=== PATIENT | female | born 1930 | race Caucasian/White ===

== ENCOUNTER 2016-11-15 03:26 | Emergency (ER) | payer MEDICARE, OTHER ==
--- NOTE | 2016-11-15 04:03 | ED Physician Documentation ---
General Adult - HISTORIAN Historian: patient, child (son) - HPI Stated Complaint: Pain/muscle spasms to Lt hip/buttocks Chief Complaint: General Adult Additional Information: L anterior "hip" pain for a long time, This week she has left glut pain, a lot worse this am. Does not radiate. Hasn't tken any meds for this. She couldn't lift left leg enough to get into bed. Family put mattress on the floor. Pain is worse if she lies supine. Better if she sits or stands. - ROS CONST: no problems MS/SKIN/LYMPH: denies: back pain NEURO/PSYCH: difficulty walking. denies: tingling, numbness - PAST HX Past History: none Surgeries/Procedures: , other (hysterectomy) Allergies/Adverse Reactions: Allergies Allergy/AdvReac Type Severity Reaction Status Date / Time No Known Drug Allergies Allergy Verified 11/15/16 03:44 Home Medications: Ambulatory Orders Medication Instructions Recorded [place] Carbonate 150 mg PO DAILY av 01/08/14 Diphenoxylate HCl/Atropine 1 tab PO QID PRN 11/15/16 [Diphenoxylate-Atrop 2.5-0.025] Levothyroxine Sodium [Unithroid] 75 mcg PO D 11/15/16 Mirtazapine [Mirtazapine] 15 mg PO D 11/15/16 - SOCIAL HX Smoking History: non-smoker - FAMILY HX Family History: Yes (F with colon cancer) - VITAL SIGNS Vital Signs: Vital Signs Temp Pulse Resp BP Pulse Ox 97.6 F 70 18 161/71 98 11/15/16 03:30 11/15/16 03:30 11/15/16 03:30 11/15/16 03:30 11/15/16 03:30 - REVIEWED ASSESSMENTS Nursing Assessment Reviewed: Yes Vitals Reviewed: Yes Progress - Progress Progress: Computed tomography of the pelvis without contrast History: Left posterior pelvic pain Findings: Transverse pelvis sections are obtained without contrast. Hysterectomy , advanced multilevel lumbar spondylosis and rotary scoliosis, and a small amount of free pelvic fluid are observed. 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 A few bone islands are present in the right iliac wing. Osteitis pubis and bilateral acetabular roof degenerative subchondral cysts are noted. There is no evidence of fracture in the pelvis or proximal femora. There is no evidence of soft tissue hematoma. Mild enlargement of the left iliopsoas muscle is associated with adjacent soft tissue stranding. The tendon appears intact distally. Impression: 1. Mild left iliopsoas enlargement with adjacent soft tissue stranding, possibly representing mild intramuscular hemorrhage or strain. 2. Advanced lumbar spondylosis, S2 Tarlov cysts, osteitis pubis, bilateral acetabular roof subchondral cysts, and small amount of nonspecific free pelvic fluid. DLP [id number] Electronically signed on Nov 15, 2016 4:52:08 AM BUTTON SEWING MACHINE OPERATOR by: Tank Rubalcava ED Results Lab/Radiology - Orders Orders: ED Orders Category Date Time Status HIP CT W/O [CT PELVIS W/O CONTRAST] Stat Exams 11/15/16 Ordered General Adult Physical Exam - PHYSICAL EXAM GENERAL APPEARANCE: moderate distress (restless, wit hfrequent position changes) EENT: eye inspection normal, ENT inspection normal NECK: normal inspection, supple RESPIRATORY: no resp distress, breath sounds normal CVS: reg rate & rhythm, heart sounds normal ABDOMEN: soft, normal bowel sounds, no distension, non-tender RECTAL: deferred BACK: normal inspection, no CVA tenderness, other (no midline tenderness) SKIN: warm/dry, normal color EXTREMITIES: normal range of motion (no change in pain with hip rotation. ) NEURO: CN's nml as tested, motor nml, sensation nml Discharge Clincal Impression: Strain of left iliopsoas muscle Qualifiers: Encounter type: initial encounter Qualified Code(s): S76.912A - Strain of unspecified muscles, fascia and tendons at thigh level, left thigh, initial encounter Additional Instructions: Try 400 mg of ibuprofen with food in your stomach, 3 to four times a day See your provider if you are not better in 3-5 days. Home Medications: Ambulatory Orders [place] Carbonate 150 mg PO DAILY av 01/08/14 Diphenoxylate HCl/Atropine [Diphenoxylate-Atrop 2.5-0.025] 1 tab PO QID PRN Levothyroxine Sodium [Unithroid] 75 mcg PO D 11/15/16 Mirtazapine [Mirtazapine] 15 mg PO D 11/15/16 Condition: Fair Disposition: 01 HOME, SELF-CARE Decision to Admit: NO Decision Time: 04:57
[2016-11-15] MEDS ORDERED: HYDROcodone /APAP 5/325 1 EACH TABLET PO ONE (04:59)
[2016-11-15 06:10] VITALS: BP 142/72
--- NOTE | 2016-11-15 07:42 | Diagnostic Imaging Report ---
DUNG CARDOZA [facility] [address] [address] [facility] [address] [place], [place]. [address] Report Submission Date: Nov 15, 2016 4:52:08 AM CLIPPER MACHINE Patient Study Name: LEYLA MARIO Date: Nov 15, 2016 4:23:52 AM CLIPPER MACHINE Modality Type: CT\SR Gender: F Description: CT PELVIS W/O CONTRAST : [birth year] Institution: [facility] Physician: DUNG CARDOZA Computed tomography of the pelvis without contrast History: Left posterior pelvic pain Findings: Transverse pelvis sections are obtained without contrast. Hysterectomy , advanced multilevel lumbar spondylosis and rotary scoliosis, and a small amount of free pelvic fluid are observed. 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 A few bone islands are present in the right iliac wing. Osteitis pubis and bilateral acetabular roof degenerative subchondral cysts are noted. There is no evidence of fracture in the pelvis or proximal femora. There is no evidence of soft tissue hematoma. Mild enlargement of the left iliopsoas muscle is associated with adjacent soft tissue stranding. The tendon appears intact distally. Impression: 1. Mild left iliopsoas enlargement with adjacent soft tissue stranding, possibly representing mild intramuscular hemorrhage or strain. 2. Advanced lumbar spondylosis, S2 Tarlov cysts, osteitis pubis, bilateral acetabular roof subchondral cysts, and small amount of nonspecific free pelvic fluid. DLSusannah [id number] Electronically signed on Nov 15, 2016 4:52:08 AM CLIPPER MACHINE by: Tank URIBE
== END 2016-11-15 05:05 | disposition home or self-care (01) ==
LOC: ED 03:26
DX: S76.912A Strain of unspecified muscles, fascia and tendons at thigh level, left thigh, initial encounter (principal); X58.XXXA Exposure to other specified factors, initial encounter; Y93.9 Activity, unspecified; Y99.9 Unspecified external cause status
CPT/HCPCS: 72192; A9270; 99283

== ENCOUNTER 2017-04-10 10:09 | Outpatient (CLI) | payer MEDICARE, OTHER | END 2017-04-10 10:10 | LOC: POD 10:09 | PROVIDERS: ATTEND Podiatrist Public Medicine | DX: L84 Corns and callosities (principal); B35.1 Tinea unguium; L60.0 Ingrowing nail; M79.675 Pain in left toe(s); M79.674 Pain in right toe(s) ==

== ENCOUNTER 2017-05-07 11:27 | Outpatient (CLI) | payer MEDICARE, OTHER ==
[2017-05-07 11:52] LABS: BASOPHILS % 0.8 (0.0-1.5); EOSINOPHILS % 1.5 % (0.0-6.8); MEAN CORPUSCULAR HEMOGLOBIN 29.8 pg (28.0-34.0); MEAN CORPUSCULAR VOLUME 92.9 fl (80.0-100.0); NEUTROPHILS # 3.9 # k/uL (1.4-7.7)
[2017-05-07 11:58] LABS: APPEARANCE,URINE Clear (CLEAR); COLOR,URINE Yellow (YELLOW); OCCULT BLOOD,URINE Negative (NEGATIVE); UROBILINOGEN URINE 0.2 Eu (0.2-1.0)
[2017-05-07 12:31] LABS: eGFR (African) > 60; eGFR (Non-African) > 60
--- NOTE | 2017-05-07 15:22 | Diagnostic Imaging Report ---
[facility] [address] [facility] [place], [place]. [address] Report Submission Date: May 07, 2017 1:35:42 PM CDT Patient Study Name: LEYLA MARIO Date: May 07, 2017 11:44:54 AM CDT Modality Type: CT\SR Gender: F Description: CT BRAIN W/O CONTRAST : [birth year] Institution: [facility] Physician ESTELLA GRACIA - YENIFER CT brain noncontrast Date of study: May 07, 2017. CLINICAL HISTORY: WEAKNESS, MEMORY DISTURBANCE, BALANCE PROBLEMS (Hx) / WEAKNESS, MEMORY DISTURBANCE (DICOM Hx) TECHNIQUE: 5 mm contiguous axial images of the brain, noncontrast. FINDINGS: No comparison studies are provided. There is diffuse cortical and central atrophy with chronic periventricular microvascular ischemic changes. There is no evidence of intracranial mass effect, hemorrhage, or acute hydrocephalus. The lateral ventricles are symmetrical and the 4th ventricle is midline without shift. No acute brain parenchymal changes or extra-axial fluid collections are identified. The posterior fossa contents are within normal limits. The calvarium is intact. The left maxillary sinus mucous retention cyst or polyp is noted. The remaining visualized sinuses and mastoid air cells are clear. IMPRESSION: No acute intracranial process. Atrophy and chronic periventricular microvascular ischemic changes. Electronically signed on May 07, 2017 1:35:42 PM CDT by: Renee URIBE
--- NOTE | 2017-05-07 15:23 | Diagnostic Imaging Report ---
[facility] [address] [address] Report Submission Date: May 07, 2017 1:40:33 PM CDT Patient Study Name: LEYLA MARIO Date: May 07, 2017 11:48:11 AM CDT Modality Type: CR Gender: F Description: CHEST : [birth year] Institution: [facility] Physician ESTELLA GARCIA - OP Chest 2 views Date of Exam: May 07, 2017. History: WEAKNESS, MEMORY DISTURBANCE, BALANCE PROBLEMS (Hx) Findings: No comparison studies are provided. Chronic emphysematous lung parenchymal changes are present. There is a right upper lobe lung granuloma. The cardiac and mediastinal silhouettes are normal. No infiltrate or effusion is identified. The trachea is midline and the aortic arch contour is normal. The pulmonary vascularity is within normal limits. There is multilevel degenerative thoracic spondylosis. An implantable device is present in the anterior thorax. Impression: Chronic emphysematous changes without evidence infiltrate or effusion. Electronically signed on May 07, 2017 1:40:33 PM CDT by: Renee URIBE
== END 2017-05-07 11:30 ==
LOC: RAD 11:27
PROVIDERS: ATTEND Family Medicine
DX: R53.1 Weakness (principal)
CPT/HCPCS: 36415; 70450; 71020; 80053; 80178; 81002; 84443; 85025; 87086

== ENCOUNTER 2017-05-22 14:42 | Outpatient (CLI) | payer MEDICARE, OTHER | END 2017-05-22 14:43 | LOC: LABRHC 14:42 | PROVIDERS: ATTEND Family Medicine | DX: R41.3 Other amnesia (principal); M81.0 Age-related osteoporosis without current pathological fracture | CPT/HCPCS: 36415; 82306 ==

== ENCOUNTER 2017-06-03 08:40 | Inpatient (IN) | payer SELFPAY ==
--- NOTE | 2017-06-04 12:21 | History and Physical Report ---
HISTORY AND PHYSICAL FOR ADMISSION TO [facility] CHIEF COMPLAINT: Weakness. HISTORY OF PRESENT ILLNESS: This is an 86-year-old female who has been getting progressively weaker at home and having more falls and more memory issues. Recently, in the clinic, we did a large memory workup and it was negative. That included a CT of the head, lab work, as well as a urine culture. She saw her psychiatrist recently for her depression and he added Cymbalta. He thought that may be part of her not wanting to do anything but not necessarily the falls, so she elected to come to [facility] today and hopes to get some therapy while she is here. PAST MEDICAL HISTORY: 1. Osteoporosis. She has been on Fosamax and Prolia. She sees Dr. Romero at [facility]. 2. Hypertension. 3. Depression. She sees Dr. Roberson who is getting ready to retire. 4. Hypothyroidism. Again, monitored by Dr. Roberson. 5. Osteoarthritis. 6. Now memory loss with some mild dementia. 7. Restless leg syndrome. 8. Frequent diarrhea. PAST SURGICAL HISTORY: 1. She had a hysterectomy in 1975. 2. Bilateral cataracts. MEDICATIONS: 1. Ropinirole 1 mg q.i.d. 2. Lisinopril/hydrochlorothiazide 20/25 mg daily. 3. Meloxicam 7.5 mg b.i.d. p.r.n. pain. 4. Lomotil 1 q.i.d. p.r.n. diarrhea. 5. Levothyroxine 75 mcg daily. 6. [place] carbonate 150 mg daily. 7. Mirtazapine 15 mg daily. 8. Cymbalta 20 mg daily. CODE STATUS: DNR. She does have a living will. VACCINATIONS: 1. She had Pneumonia 13 on 06/23/2015. 2. She had Pneumonia 23 on 07/15/2006. 3. Shingle vaccine in 2011. 4. Last tetanus shot was 05/02/2015. 5. She has had a Tdap. SOCIAL HISTORY: She is . She has 2 sons, Yonathan and Reji Al, who are her DPOAs. FAMILY HISTORY: Mom at 82. She had dementia until her last 2 years of life and ended up dying of a CVA. Dad of colon cancer at 65. Brother of "osteoporosis. " REVIEW OF SYSTEMS: Denies fevers, headaches, weight loss, chills, chest pain, shortness of breath, abdominal pain, and edema. Her review of systems is positive for a fall this morning in the bathroom. She did not get injured. PHYSICAL EXAMINATION: Vital Signs: T: 98.6, BP: 143/52, P: 67, R: 20, oxygen saturation is 98% on room air. Weight: 116. General: She is a well-nourished female in no acute distress. She is alert and oriented x3 today. HEENT: Her TMs are clear. Pharynx is pink and moist. Neck: Supple. Lungs: Clear. Heart: Regular rate and rhythm without a murmur. Abdomen: Soft and nontender. Extremities: She does walk with a stooped posture and a slow shuffled gait. ASSESSMENT: Weakness with falls. PLAN: 1. We will admit her to [facility] with the plan to do physical therapy (PT) and occupational therapy (OT) for falls, balance, and strengthening, as well as speech therapy for cognition training. 2. Hypertension, stable. We will continue her current medications. 3. Depression. Recently added Cymbalta. We will watch her closely. 4. Mild dementia. Again, hopefully, speech therapy can help with this, but we will keep an eye on her. FERNANDOD
== END 2017-07-01 12:45 | disposition short-term general hospital (02) | DRG 951 ==
LOC: ICF 08:40
PROVIDERS: ADMIT Family Medicine; ATTEND Family Medicine
DX: Z51.5 Encounter for palliative care (principal)

== ENCOUNTER 2017-08-19 10:30 | Inpatient (IN) | payer SELFPAY ==
--- NOTE | 2017-08-20 09:39 | History and Physical Report ---
CHIEF COMPLAINT: Weakness. HISTORY OF PRESENT ILLNESS: This is an 87-year-old female who is coming back to [facility] to live. She had been here before and she returned home and realized it just was not working and wanted to come back to [facility]. She has been doing otherwise well. PAST MEDICAL HISTORY: 1. Osteoporosis. She had been on Fosamax for 5 years and is currently doing Prolia injections. 2. Hypertension. 3. Depression. She sees Dr. Roberson in [place]. 4. Hypothyroidism. Dr. Roberson has been monitoring this also. 5. Some mild dementia. 6. Restless leg syndrome. 7. Irritable bowel syndrome. PAST SURGICAL HISTORY: 1. Total abdominal hysterectomy in 1975. 2. Bilateral cataracts. MEDICATIONS: 1. Levothyroxine 75 mcg daily. 2. Lisinopril/HCTZ 20/25 mg daily. 3. Ropinirole 1 mg daily. 4. Calcium plus vitamin D 600 mg at noon. 5. Duloxetine 30 mg at noon. 6. Hunt 150 mg she takes one-half tablet or 75 mg at supper. 7. Ropinirole 1 mg at supper. 8. Remeron 15 mg at night. 9. Ropinirole 1 mg at night. 10. Meloxicam 7.5 mg b.i.d. p.r.n. 11. Lomotil 2.5 mg q.i.d. p.r.n. diarrhea. ALLERGIES: None. CODE STATUS: She is a DNR according to our conversations today. IMMUNIZATIONS: 1. Pneumonia 23 in 2005. 2. Pneumonia 13 in 2014. 3. Zostavax in 2011. 4. She does have yearly flu shots. 5. Last tetanus was in and it was a Tdap. SOCIAL HISTORY: She is a . She has 2 sons, Yonathan and Reji Al. She does not smoke. FAMILY HISTORY: Mom at 82. She had been healthy. She had dementia and of a CVA. She had a brother who of colon cancer at 65. Another brother she tells me from osteoporosis. REVIEW OF SYSTEMS: Denies fevers, chills, weight loss, chest pain, shortness of breath, problems with her bowels or problems with urination. PHYSICAL EXAMINATION: Vital Signs: T: 97.1, BP: 138/74, P: 68, R: 20. She is 96% on room air. Weight: 120. Height: 5 feet 5 inches. General: She is a well-nourished female in no acute distress. She is alert and oriented x3. HEENT: TMs are clear. Pharynx is pink and moist. Neck: Supple. Lungs: Clear bilaterally. Heart: Regular. No murmur. Back: She does have a kyphotic posture. Abdomen: Soft and nontender. Extremities: Show no edema. ASSESSMENT AND PLAN: An 87-year-old female will be admitted to [facility] due to her weakness and advancing age. Her blood pressure appears stable. Depression appears stable also. She has had recent labs for her thyroid disease with her last TSH being normal on May 07, 2017, and she is currently up to date on her scans for her osteoporosis. JOJO
[2017-10-21 15:50] LABS: eGFR (African) > 60; eGFR (Non-African) > 60
--- NOTE | 2018-02-26 10:20 | Discharge Summary ---
DISCHARGE NOTE FROM [facility] TO [facility] DATE OF DISCHARGE: February 26, 2018 DISCHARGE DIAGNOSES: 1. Weakness. 2. Right hip fracture. 3. Bilateral deep venous thrombosis (DVTs). 4. Hypothyroidism. 5. Depression. 6. Restless leg syndrome. 7. Osteoarthritis. 8. Hypertension. 9. Overactive bladder. 10. Constipation. HOSPITAL COURSE: Patient was admitted to [facility] in May 2017. During her stay there, she did suffer a right hip fracture and developed bilateral lower extremity DVTs, for which she is currently being anticoagulated. Once her Eliquis is done, she will start a baby aspirin a day for DVT prevention. She had done fairly well with physical therapy with her hip fracture. She had some problems with her depression and continued to see her psychiatrist. She will be moved to [facility] in fair condition. MEDICATIONS ON DISCHARGE: 1. Levothyroxine 0.75 mg daily for hypothyroidism. 2. [place] 75 mg daily for depression. 3. Ropinirole 1 mg daily for restless leg syndrome. 4. Celebrex 100 mg daily for osteoarthritis. 5. Lisinopril 20 mg daily for hypertension. 6. Flomax 0.4 mg daily for overactive bladder. 7. Vitamin D 1000 units daily. 8. MiraLAX 1 scoop in 8 ounces of liquid daily. 9. Calcium plus D 500 mg b.i.d. 10. Remeron 30 mg at night for depression. 11. Melatonin 3 mg at night for insomnia. 12. Lexapro 5 mg at night for depression. 13. Eliquis 5 mg b.i.d. until April 22, 2018, for bilateral DVTs. 14. Sennoside Docusate 1 daily for constipation. 15. Tylenol 650 mg p.o. every 4 hours p.r.n. pain. DISCHARGE DIET: Regular. DISCHARGE ACTIVITY: Ad michael. CODE STATUS: DO NOT RESUSCITATE (DNR). CONDITION ON DISCHARGE: Fair condition. JOJO
== END 2018-02-26 10:53 | disposition short-term general hospital (02) | DRG 948 ==
LOC: ICF 10:30
PROVIDERS: ADMIT Family Medicine; ATTEND Family Medicine
DX: R53.1 Weakness (principal)
CPT/HCPCS: 36415; 80048

== ENCOUNTER 2017-09-25 09:09 | Outpatient (CLI) | payer MEDICARE, BC | END 2017-09-25 09:15 | LOC: POD 09:09 | PROVIDERS: ATTEND Podiatrist Public Medicine | DX: B35.1 Tinea unguium (principal); L84 Corns and callosities; L60.0 Ingrowing nail; M79.674 Pain in right toe(s); M79.675 Pain in left toe(s) | CPT/HCPCS: 11721; G0463 ==

== ENCOUNTER 2017-10-21 12:30 | Outpatient (CLI) | payer MEDICARE, BC | END 2017-10-21 12:32 | LOC: LAB 12:30 | PROVIDERS: ATTEND Family Medicine | DX: Z53.9 Procedure and treatment not carried out, unspecified reason (principal) ==

== ENCOUNTER 2017-10-23 07:56 | Outpatient (CLI) | payer MEDICARE, OTHER ==
[2017-10-23 08:49] LABS: BASOPHILS % 0.3 (0.0-1.5); MEAN CORPUSCULAR HEMOGLOBIN 30.3 pg (28.0-34.0); MEAN CORPUSCULAR VOLUME 90.1 fl (80.0-100.0); MONOCYTES % 6.8 % (0.0-11.0); NEUTROPHILS # 4.4 # k/uL (1.4-7.7)
[2017-10-23 08:58] LABS: eGFR (African) > 60; eGFR (Non-African) > 60
--- NOTE | 2017-10-23 10:13 | Diagnostic Imaging Report ---
ESTELLA GARCIA [facility] [address] [facility] [address] [place] [address]. [address] Report Submission Date: Oct 23, 2017 10:05:58 AM COMMUNITY RELATIONS COORDINATOR Patient Study Name: LEYLA MARIO Date: Oct 23, 2017 8:55:38 AM COMMUNITY RELATIONS COORDINATOR Modality Type: CR Gender: F Description: PELVIS : [birth year] Institution: [facility] Physician: ESTELLA GARCIA Examination: Plain film pelvis History: Fall Comparison exams: None provided Findings: 3 views obtained of the pelvis. Diffuse osteopenia. Fracture involving the neck on the right. No dislocation of the femoral head from the acetabulum. Mild superior migration of the femoral shaft. Hip articular margins are intact. Superior and inferior pubic rami within normal limits. Iliac wings without abnormality. Lumbar spine curvature and degenerative changes. Impression: Fracture right femoral neck. No articular dislocation. Osteopenia and degenerative changes. Electronically signed on Oct 23, 2017 10:05:58 AM COMMUNITY RELATIONS COORDINATOR by: Dmitri URIBE
== END 2017-10-23 07:57 ==
LOC: RAD 07:56
PROVIDERS: ATTEND Family Medicine
DX: M25.551 Pain in right hip (principal); W19.XXXA Unspecified fall, initial encounter
CPT/HCPCS: 73502; 80048; 85025; S1016

== ENCOUNTER 2017-11-05 12:20 | Inpatient (IN) | payer MEDICARE, OTHER ==
[2017-11-05] MEDS ORDERED: POLYETHYLENE GLYCOL 3350 17 GM POWD.PACK PO PRN (13:34)
[2017-11-05] MEDS ORDERED: SENNOSIDES/DOCUSATE SODIUM 1 EACH TABLET PO PRN ×2 (13:34→15:52)
[2017-11-05] MEDS: MIRTAZAPINE 15 MG TABLET PO SCH ×2 (15:00→20:15)
[2017-11-05 17:00] VITALS: BMI 20.2
[2017-11-05] MEDS: TAMSULOSIN HCL 0.4 MG CAP.ER.24H PO SCH (18:04)
[2017-11-05] MEDS: rOPINIRole HCL 1 MG TABLET PO SCH ×2 (18:04→20:15)
[2017-11-05] MEDS: BUSPIRONE HCL 5 MG TABLET PO PRN (18:24)
--- NOTE | 2017-11-05 19:25 | History and Physical Report ---
History of Present Illnes - History of Present Illness Reason for Visit: Weakness History of Present Illness: Patient was a resident on [facility] when she fell on 10-23-17 and suffered a R femoral neck fx. She has this repaired at [facility] on 10-24-17 with ORIF. It was noted when montoya placed prior to patient transfer to [facility] she had 2000 cc of urine retained in bladder. She continued with urinary retention while there and failed numerous voiding trials. She has a chronic history of issues with urination that looking back was likely related to retention. Montoya is still in place. She had some new hyponatremia just before her fall that was thought to be due to her new effexor and had been held. This continued at [facility] so HCTZ stopped also. Improved. She developed an ileus post op that required NG tube as well as PPN. She was given numerous enemas and laxatives. She began stooling and taking better po intake. Stool still tends to be liquidy. Pain is well controlled - not requiring hardly any narcotics. - Past Medical History Cardiac: HTN [employer] WORK[employer]: Dementia (mild) Psych: Depression Endocrine: Hypothyroidism, Osteoporosis - Past Surgical History Past Surgical History: Cataract Removal (bilateral), Hysterectomy (1975), Other (R hip fx repair) - Past Family History Mother Family History: CVA, , Other (dementia at 80 ) Father Family History: Cancer (colon), (65) - Past Social History Smoke: No Alcohol: None Lives: Other ([facility] at [facility]) - Health Maintenance Health Maintenance: Influenza Vaccine, Pneumococcal Vaccine Influenza Vaccine: Current for this Influenza Season Pneumonia Vaccine: Yes Resuscitation Status: Resusciation Status Resuscitation Status Do Not Resuscitate Review of Systems - Review of Systems Constitutional: Weakness. negative: Fever Eyes: negative: pain ENT: negative: Ear Pain, Nose Congestion Respiratory: negative: Cough, Shortness of Breath Cardiovascular: negative: Chest Pain Gastrointestinal: negative: Nausea, Vomiting, Abdominal Pain Genitourinary: Retention. negative: Dysuria Musculoskeletal: Leg Pain. negative: Neck Pain Skin: negative: Rash Neurological: Weakness - Medications/Allergies Allergies/Adverse Reactions: Allergies Allergy/AdvReac Type Severity Reaction Status Date / Time No Known Drug Allergies Allergy Verified 11/15/16 03:44 Home Medications: Home Medications Buspirone HCl [Buspar] 5 mg PO BID PRN 11/05/17 Calcium Carbonate/Vitamin D3 [Calcium 500 + Vit D 200 Tablet] 1 tab PO DAILY 03/17 Ergocalciferol (Vitamin D2) [Vitamin D-2] 1 cap PO Q7DAYS 11/05/17 Lisinopril 20 mg PO DAILY 11/05/17 [place] Carbonate 75 mg PO DAILY 11/05/17 Meloxicam [Mobic] 7.5 mg PO BID 11/05/17 Polyethylene Glycol 3350 [Miralax] 17 gm PO 1100 PRN 11/05/17 Rivaroxaban [Xarelto] 10 mg PO HS 11/05/17 Sennosides/Docusate Sodium [Docusate Sodium-Senna Tablet] 1 tab PO BID PRN 11/05 Tamsulosin HCl [Flomax] 1 tab PO DAILY 11/05/17 Current Inpatient Medications: Current Inpatient Medications Buspirone HCl (Buspar) 5 mg PO BID PRN PRN Reason: Anxiety Last Admin: 11/05/17 18:24 Dose: 5 mg Calcium/Vitamin D (Calcium 500 + Vit D 200 Tablet) 1 each PO DAILY [facility] Celecoxib (Celebrex) 100 mg PO DAILY [facility] Ergocalciferol (Vitamin D2) 50,000 unit PO Q7DAYS [facility] Levothyroxine Sodium (Levothyroxine Sodium) 75 mcg PO 0700 [facility] Lisinopril (Prinivil) 20 mg PO DAILY [facility] Mirtazapine (Remeron) 30 mg PO HS [facility] Last Admin: 11/05/17 15:00 Dose: 30 mg Miscellaneous ([place] Carbonate [[place] Carbonate]) 75 mg PO DAILY [facility] Polyethylene Glycol (Miralax) 17 gm PO 1100 PRN PRN Reason: Constipation Rivaroxaban (Xarelto) 10 mg PO HS [facility] Stop: 11/25/17 23:00 Ropinirole HCl (Requip) 1 mg PO QID [facility] Last Admin: 11/05/17 18:04 Dose: 1 mg Senna/Docusate Sodium (Senna Plus Tablet) 1 each PO BID PRN PRN Reason: Constipation Tamsulosin HCl (Flomax) 0.4 mg PO 1800 [facility] Last Admin: 11/05/17 18:04 Dose: 0.4 mg Exam - Exam Vital Signs: Vital Signs (72 hours) 11/05/17 12:47 Temperature 97.9 F Pulse Rate [ 73 Left] Respiratory 18 Rate Blood Pressure 147/61 [Right Arm] O2 Sat by Pulse 94 Oximetry General: Alert, Oriented to Person, Oriented to Place, Oriented to Time, Cooperative, No acute distress HEENT: Atraumatic, PERRLA, EOMI, Mouth Mucous membr. moist/[place] Neck: Normal Range of Motion Lungs: Clear to auscultation, Normal air movement, Speaks full Sentences Cardiovascular: Regular rate Abdomen: Normal bowel sounds, Soft, No tenderness Integumentary: Normal, Other (R hip incision C/D/I) Extremities: No edema Neurological: Generalized Weakness Psych/Mental Status: Mental status NL, Mood NL, Appropriate Affect, Intact Judgment Assessment/Plan - Assessment/Plan (1) Weakness Status: Acute Current Visit: Yes Plan: Admit to SNF for PT/OT. Plan transfer back to [facility] care when ready. (2) Closed right hip fracture Status: Acute Current Visit: Yes Qualifiers: Encounter type: subsequent encounter Fracture healing: with routine healing Qualified Code(s): S72.001D - Fracture of unspecified part of neck of right femur, subsequent encounter for closed fracture with routine healing Plan: Patient incision looks good. Will need xarelto until 11-24-17. She is to see DR. Nhung Houston in 2-4 weeks. IF she is completely unable to be transported, she can get low AP pelvis xray to include stem as well as a cross table lateral of the hip and have films mailed to Dr. Houston. IF that is the case, she wants to see her in 3 months. (3) Urinary retention Status: Acute Current Visit: Yes Plan: Will continue with montoya for now. Urology started flomax. Plan to see them back in 2-3 weeks. IF she is unable to travel we will do voiding trial here. (4) Hyponatremia Status: Acute Current Visit: Yes Plan: Check Na next week. May need to do fluid restriction. (5) HTN (hypertension) Status: Chronic Current Visit: No Qualifiers: Hypertension type: essential hypertension Qualified Code(s): I10 - Essential (primary) hypertension Plan: LIsinopril/HCtZ now just lisinopril. Watch BP. (6) Ileus, postoperative Status: Acute Current Visit: No Plan: Improved. Try to avoid narcotics. Watch closely. Use stool softeners prn. Try to avoid lomotil that she took before. Patient was pretty obscessive with her bowel regimen. 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 VTE Assessment - RISK FACTOR SCORE VTE RISK FACTOR SCORES: AGE OVER 60 YEARS, HIP, PELVIS, OR LEG FX - RISK VTE MODERATE RISK: SCORE OF 2 (RISK PROXIMAL DVT 2-4%) PROPHYAXIS NEEDED
[2017-11-05] MEDS: RIVAROXABAN 10 MG TABLET PO SCH (20:15)
[2017-11-05] MEDS ORDERED: MELOXICAM 7.5 MG PO SCH (21:00)
[2017-11-05] MEDS ORDERED: MIRTAZAPINE 30 MG PO SCH (21:00)
[2017-11-06] MEDS ORDERED: LISINOPRIL 20 MG TABLET ONE (00:48)
[2017-11-06] MEDS ORDERED: CELECOXIB 100 MG CAPSULE ONE (00:48)
[2017-11-06] MEDS ORDERED: CALCIUM/VIT D 500MG/200IU TABLET ONE (00:48)
[2017-11-06] MEDS ORDERED: LEVOTHYROXINE SODIUM 25 MCG TABLET ONE (00:49)
[2017-11-06] MEDS: LEVOTHYROXINE SODIUM 75 MCG TABLET PO SCH (06:17)
[2017-11-06] MEDS: BUSPIRONE HCL 5 MG TABLET PO PRN ×2 (08:05→21:34)
[2017-11-06] MEDS ORDERED: VIT D PO SCH (09:00)
[2017-11-06] MEDS ORDERED: CALCIUM PO SCH (09:00)
[2017-11-06] MEDS ORDERED: TAMSULOSIN HCL 0.4 MG CAP.ER.24H PO SCH (09:00)
[2017-11-06] MEDS ORDERED: LITHIUM CARBONATE PO SCH (09:00)
[2017-11-06] MEDS ORDERED: LITHIUM CARBONATE 300 MG CAPSULE PO ONE (10:39)
[2017-11-06] MEDS: CALCIUM PO SCH (10:42)
[2017-11-06] MEDS: VIT D PO SCH (10:42)
[2017-11-06] MEDS: CELECOXIB 100 MG CAPSULE PO SCH (10:42)
[2017-11-06] MEDS: LISINOPRIL 20 MG TABLET PO SCH (10:42)
[2017-11-06] MEDS: rOPINIRole HCL 1 MG TABLET PO SCH ×4 (10:43→21:21)
[2017-11-06] MEDS ORDERED: LITHIUM CARBONATE 300 MG TABLET PO SCH ×2 (15:00)
[2017-11-06] MEDS: TAMSULOSIN HCL 0.4 MG CAP.ER.24H PO SCH (17:30)
[2017-11-06] MEDS: RIVAROXABAN 10 MG TABLET PO SCH (21:21)
[2017-11-06] MEDS: MIRTAZAPINE 15 MG TABLET PO SCH (21:21)
[2017-11-07] MEDS ORDERED: CALCIUM/VIT D 500MG/200IU TABLET ONE (05:10)
[2017-11-07] MEDS: LEVOTHYROXINE SODIUM 75 MCG TABLET PO SCH (06:18)
[2017-11-07] MEDS: CALCIUM PO SCH (09:30)
[2017-11-07] MEDS: VIT D PO SCH (09:30)
[2017-11-07] MEDS: rOPINIRole HCL 1 MG TABLET PO SCH ×4 (09:30→20:20)
[2017-11-07] MEDS: CELECOXIB 100 MG CAPSULE PO SCH (09:30)
[2017-11-07] MEDS: LISINOPRIL 20 MG TABLET PO SCH (09:30)
[2017-11-07] MEDS: LITHIUM CARBONATE 300 MG TABLET PO SCH (09:48)
[2017-11-07] MEDS: TAMSULOSIN HCL 0.4 MG CAP.ER.24H PO SCH (17:43)
[2017-11-07] MEDS: RIVAROXABAN 10 MG TABLET PO SCH (20:20)
[2017-11-07] MEDS: MIRTAZAPINE 15 MG TABLET PO SCH (20:20)
[2017-11-07] MEDS: BUSPIRONE HCL 5 MG TABLET PO PRN (23:22)
[2017-11-08] MEDS: LEVOTHYROXINE SODIUM 75 MCG TABLET PO SCH (06:16)
[2017-11-08] MEDS: CELECOXIB 100 MG CAPSULE PO SCH (08:56)
[2017-11-08] MEDS: rOPINIRole HCL 1 MG TABLET PO SCH ×4 (08:57→20:52)
[2017-11-08] MEDS: LISINOPRIL 20 MG TABLET PO SCH (08:57)
[2017-11-08] MEDS ORDERED: CALCIUM/VIT D 500MG/200IU TABLET ONE (09:00)
[2017-11-08] MEDS: CALCIUM PO SCH ×2 (09:01→09:04)
[2017-11-08] MEDS: LITHIUM CARBONATE 300 MG TABLET PO SCH (09:01)
[2017-11-08] MEDS: VIT D PO SCH ×2 (09:01→09:04)
[2017-11-08] MEDS: TAMSULOSIN HCL 0.4 MG CAP.ER.24H PO SCH (18:40)
[2017-11-08] MEDS: MIRTAZAPINE 15 MG TABLET PO SCH (20:52)
[2017-11-08] MEDS: RIVAROXABAN 10 MG TABLET PO SCH (20:52)
[2017-11-09] MEDS ORDERED: CALCIUM/VIT D 500MG/200IU TABLET ONE (03:45)
[2017-11-09] MEDS: LEVOTHYROXINE SODIUM 75 MCG TABLET PO SCH (05:59)
[2017-11-09] MEDS: rOPINIRole HCL 1 MG TABLET PO SCH ×4 (09:25→19:46)
[2017-11-09] MEDS: CELECOXIB 100 MG CAPSULE PO SCH (09:25)
[2017-11-09] MEDS: CALCIUM PO SCH (09:25)
[2017-11-09] MEDS: LISINOPRIL 20 MG TABLET PO SCH (09:25)
[2017-11-09] MEDS: VIT D PO SCH (09:25)
[2017-11-09] MEDS: BUSPIRONE HCL 5 MG TABLET PO PRN (09:29)
[2017-11-09] MEDS: LITHIUM CARBONATE 300 MG TABLET PO SCH (09:30)
[2017-11-09] MEDS: TAMSULOSIN HCL 0.4 MG CAP.ER.24H PO SCH (17:16)
[2017-11-09] MEDS: RIVAROXABAN 10 MG TABLET PO SCH (19:46)
[2017-11-09] MEDS: MIRTAZAPINE 15 MG TABLET PO SCH (20:37)
[2017-11-10] MEDS ORDERED: CALCIUM/VIT D 500MG/200IU TABLET ONE ×2 (02:29→21:44)
[2017-11-10] MEDS: BUSPIRONE HCL 5 MG TABLET PO PRN ×2 (04:27→20:41)
[2017-11-10] MEDS: LEVOTHYROXINE SODIUM 75 MCG TABLET PO SCH (06:18)
[2017-11-10] MEDS: LITHIUM CARBONATE 300 MG TABLET PO SCH (09:58)
[2017-11-10] MEDS: CALCIUM PO SCH (09:58)
[2017-11-10] MEDS: VIT D PO SCH (09:58)
[2017-11-10] MEDS: LISINOPRIL 20 MG TABLET PO SCH (09:59)
[2017-11-10] MEDS: rOPINIRole HCL 1 MG TABLET PO SCH ×4 (09:59→20:45)
[2017-11-10] MEDS: CELECOXIB 100 MG CAPSULE PO SCH (09:59)
[2017-11-10] MEDS: TAMSULOSIN HCL 0.4 MG CAP.ER.24H PO SCH (17:02)
[2017-11-10] MEDS: RIVAROXABAN 10 MG TABLET PO SCH (20:41)
[2017-11-10] MEDS: MIRTAZAPINE 15 MG TABLET PO SCH (20:42)
[2017-11-11] MEDS: LEVOTHYROXINE SODIUM 75 MCG TABLET PO SCH (05:54)
--- NOTE | 2017-11-11 08:07 | Inpatient Progress Note ---
Subjective - Required Recertification Statement I anticipate X number of days because-include discharge plan: 14 - Review of Systems Subjective: Patient doing ok. Pain controlled. Objective - Exam Vitals and I&O: Vital Signs Temp 97.9 F 11/10/17 21:00 Pulse 75 11/10/17 09:00 Resp 18 11/10/17 21:00 BP 151/68 11/10/17 21:00 Pulse Ox 94 11/10/17 21:00 Intake & Output 11/10/17 11/10/17 11/11/17 11:59 23:59 11:59 Intake Total 220 1370 Output Total 1500 1200 Balance 220 -130 -1200 Intake: Oral 220 1370 Output: Urine 1500 1200 Uretheral (Batres) 750 Other: Voiding Method Indwelling Catheter Indwelling Catheter # Bowel Movements 1 General: Alert, Oriented to Person, Oriented to Place, Oriented to Time, Cooperative, No acute distress Lungs: Clear to auscultation, Normal air movement, Speaks full Sentences Cardiovascular: Regular rate Assessment/Plan - Assessment/Plan (1) Weakness Status: Acute Current Visit: Yes Plan: Cont. PT/OT. (2) Closed right hip fracture Status: Acute Current Visit: Yes Qualifiers: Encounter type: subsequent encounter Fracture healing: with routine healing Qualified Code(s): S72.001D - Fracture of unspecified part of neck of right femur, subsequent encounter for closed fracture with routine healing (3) Urinary retention Status: Acute Current Visit: Yes Plan: Will attempt to d/c catheter next week. 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
[2017-11-11 08:43] LABS: eGFR (African) > 60; eGFR (Non-African) > 60
[2017-11-11] MEDS: rOPINIRole HCL 1 MG TABLET PO SCH ×4 (09:27→21:28)
[2017-11-11] MEDS: VIT D PO SCH ×2 (09:27→09:33)
[2017-11-11] MEDS: CALCIUM PO SCH ×2 (09:27→09:33)
[2017-11-11] MEDS: CELECOXIB 100 MG CAPSULE PO SCH (09:28)
[2017-11-11] MEDS: LITHIUM CARBONATE 300 MG TABLET PO SCH (09:28)
[2017-11-11] MEDS: LISINOPRIL 20 MG TABLET PO SCH (09:28)
[2017-11-11] MEDS: TAMSULOSIN HCL 0.4 MG CAP.ER.24H PO SCH (17:59)
[2017-11-11] MEDS: BUSPIRONE HCL 5 MG TABLET PO PRN (21:25)
[2017-11-11] MEDS: MIRTAZAPINE 15 MG TABLET PO SCH (21:25)
[2017-11-11] MEDS: RIVAROXABAN 10 MG TABLET PO SCH (21:25)
[2017-11-12] MEDS ORDERED: CALCIUM/VIT D 500MG/200IU TABLET ONE (05:21)
[2017-11-12] MEDS: LEVOTHYROXINE SODIUM 75 MCG TABLET PO SCH (06:37)
[2017-11-12] MEDS ORDERED: ERGOCALCIFEROL (VITAMIN D2) 50,000 UNIT CAPSULE PO SCH (09:00)
[2017-11-12] MEDS: CELECOXIB 100 MG CAPSULE PO SCH (10:16)
[2017-11-12] MEDS: LITHIUM CARBONATE 300 MG TABLET PO SCH (10:16)
[2017-11-12] MEDS: rOPINIRole HCL 1 MG TABLET PO SCH ×4 (10:16→21:22)
[2017-11-12] MEDS: CALCIUM PO SCH ×2 (10:16→10:22)
[2017-11-12] MEDS: VIT D PO SCH ×2 (10:16→10:22)
[2017-11-12] MEDS: LISINOPRIL 20 MG TABLET PO SCH (10:16)
[2017-11-12] MEDS: ERGOCALCIFEROL (VITAMIN D2) 50,000 UNIT CAPSULE PO SCH (10:19)
[2017-11-12] MEDS: TAMSULOSIN HCL 0.4 MG CAP.ER.24H PO SCH (17:40)
[2017-11-12] MEDS: MIRTAZAPINE 15 MG TABLET PO SCH (21:22)
[2017-11-12] MEDS: RIVAROXABAN 10 MG TABLET PO SCH (21:22)
[2017-11-12] MEDS: BUSPIRONE HCL 5 MG TABLET PO PRN (23:13)
[2017-11-13] MEDS ORDERED: CALCIUM/VIT D 500MG/200IU TABLET ONE (04:38)
[2017-11-13] MEDS: LEVOTHYROXINE SODIUM 75 MCG TABLET PO SCH (05:32)
[2017-11-13] MEDS: LITHIUM CARBONATE 300 MG TABLET PO SCH (08:36)
[2017-11-13] MEDS: BUSPIRONE HCL 5 MG TABLET PO PRN ×2 (08:38→20:22)
[2017-11-13] MEDS: CALCIUM PO SCH (08:38)
[2017-11-13] MEDS: VIT D PO SCH (08:38)
[2017-11-13] MEDS: LISINOPRIL 20 MG TABLET PO SCH (08:38)
[2017-11-13] MEDS: CELECOXIB 100 MG CAPSULE PO SCH (08:39)
[2017-11-13] MEDS: rOPINIRole HCL 1 MG TABLET PO SCH ×4 (08:39→20:26)
[2017-11-13] MEDS: TAMSULOSIN HCL 0.4 MG CAP.ER.24H PO SCH (18:45)
[2017-11-13] MEDS: RIVAROXABAN 10 MG TABLET PO SCH (20:22)
[2017-11-13] MEDS: MIRTAZAPINE 15 MG TABLET PO SCH (20:22)
[2017-11-14] MEDS ORDERED: CALCIUM/VIT D 500MG/200IU TABLET ONE ×2 (04:57→21:51)
[2017-11-14] MEDS: LEVOTHYROXINE SODIUM 75 MCG TABLET PO SCH (06:04)
[2017-11-14] MEDS: VIT D PO SCH (08:52)
[2017-11-14] MEDS: LISINOPRIL 20 MG TABLET PO SCH (08:52)
[2017-11-14] MEDS: CALCIUM PO SCH (08:52)
[2017-11-14] MEDS: rOPINIRole HCL 1 MG TABLET PO SCH ×4 (08:52→20:34)
[2017-11-14] MEDS: CELECOXIB 100 MG CAPSULE PO SCH (08:53)
[2017-11-14] MEDS: LITHIUM CARBONATE 300 MG TABLET PO SCH (08:54)
[2017-11-14] MEDS: POLYETHYLENE GLYCOL 3350 17 GM POWD.PACK PO SCH (13:06)
[2017-11-14] MEDS: TAMSULOSIN HCL 0.4 MG CAP.ER.24H PO SCH (16:55)
[2017-11-14] MEDS: MIRTAZAPINE 15 MG TABLET PO SCH (20:33)
[2017-11-14] MEDS: RIVAROXABAN 10 MG TABLET PO SCH (20:34)
[2017-11-14] MEDS: SENNOSIDES/DOCUSATE SODIUM 1 EACH TABLET PO SCH (20:34)
[2017-11-15] MEDS: BUSPIRONE HCL 5 MG TABLET PO PRN ×2 (01:04→20:17)
[2017-11-15] MEDS: LEVOTHYROXINE SODIUM 75 MCG TABLET PO SCH (07:56)
[2017-11-15] MEDS: rOPINIRole HCL 1 MG TABLET PO SCH ×4 (08:44→20:17)
[2017-11-15] MEDS: SENNOSIDES/DOCUSATE SODIUM 1 EACH TABLET PO SCH ×2 (08:45→20:16)
[2017-11-15] MEDS: CALCIUM PO SCH (08:45)
[2017-11-15] MEDS: LITHIUM CARBONATE 300 MG TABLET PO SCH (08:45)
[2017-11-15] MEDS: LISINOPRIL 20 MG TABLET PO SCH (08:45)
[2017-11-15] MEDS: CELECOXIB 100 MG CAPSULE PO SCH (08:45)
[2017-11-15] MEDS: VIT D PO SCH (08:45)
[2017-11-15] MEDS: POLYETHYLENE GLYCOL 3350 17 GM POWD.PACK PO SCH (11:03)
[2017-11-15] MEDS: TAMSULOSIN HCL 0.4 MG CAP.ER.24H PO SCH (18:03)
[2017-11-15] MEDS: MIRTAZAPINE 15 MG TABLET PO SCH (20:17)
[2017-11-15] MEDS: RIVAROXABAN 10 MG TABLET PO SCH (20:17)
[2017-11-16] MEDS ORDERED: CALCIUM/VIT D 500MG/200IU TABLET ONE (01:53)
[2017-11-16] MEDS: LEVOTHYROXINE SODIUM 75 MCG TABLET PO SCH (06:33)
[2017-11-16] MEDS: VIT D PO SCH ×2 (08:30→08:31)
[2017-11-16] MEDS: CALCIUM PO SCH ×2 (08:30→08:31)
[2017-11-16] MEDS: CELECOXIB 100 MG CAPSULE PO SCH (08:31)
[2017-11-16] MEDS: LITHIUM CARBONATE 300 MG TABLET PO SCH (08:32)
[2017-11-16] MEDS: rOPINIRole HCL 1 MG TABLET PO SCH ×4 (08:32→19:21)
[2017-11-16] MEDS: LISINOPRIL 20 MG TABLET PO SCH (08:32)
[2017-11-16] MEDS: SENNOSIDES/DOCUSATE SODIUM 1 EACH TABLET PO SCH ×2 (08:33→19:21)
[2017-11-16] MEDS: POLYETHYLENE GLYCOL 3350 17 GM POWD.PACK PO SCH (12:27)
[2017-11-16] MEDS: TAMSULOSIN HCL 0.4 MG CAP.ER.24H PO SCH (17:17)
[2017-11-16] MEDS: MIRTAZAPINE 15 MG TABLET PO SCH (19:20)
[2017-11-16] MEDS: BUSPIRONE HCL 5 MG TABLET PO PRN (19:21)
[2017-11-16] MEDS: RIVAROXABAN 10 MG TABLET PO SCH (19:21)
[2017-11-17] MEDS ORDERED: CALCIUM/VIT D 500MG/200IU TABLET ONE ×2 (00:38→20:50)
[2017-11-17] MEDS: LEVOTHYROXINE SODIUM 75 MCG TABLET PO SCH (09:20)
[2017-11-17] MEDS: VIT D PO SCH (09:20)
[2017-11-17] MEDS: CALCIUM PO SCH (09:20)
[2017-11-17] MEDS: CELECOXIB 100 MG CAPSULE PO SCH (09:21)
[2017-11-17] MEDS: LITHIUM CARBONATE 300 MG TABLET PO SCH (09:21)
[2017-11-17] MEDS: rOPINIRole HCL 1 MG TABLET PO SCH ×4 (09:22→20:24)
[2017-11-17] MEDS: SENNOSIDES/DOCUSATE SODIUM 1 EACH TABLET PO SCH ×2 (09:22→20:25)
[2017-11-17] MEDS: LISINOPRIL 20 MG TABLET PO SCH (09:22)
[2017-11-17] MEDS: POLYETHYLENE GLYCOL 3350 17 GM POWD.PACK PO SCH (12:34)
[2017-11-17] MEDS: TAMSULOSIN HCL 0.4 MG CAP.ER.24H PO SCH (17:54)
[2017-11-17] MEDS: RIVAROXABAN 10 MG TABLET PO SCH (20:24)
[2017-11-17] MEDS: MIRTAZAPINE 15 MG TABLET PO SCH (20:24)
[2017-11-17] MEDS: HYDROcodone /APAP 5/325 1 EACH TABLET PO PRN (23:34)
[2017-11-18] MEDS: LEVOTHYROXINE SODIUM 75 MCG TABLET PO SCH (06:08)
[2017-11-18] MEDS: VIT D PO SCH (09:36)
[2017-11-18] MEDS: LITHIUM CARBONATE 300 MG TABLET PO SCH (09:36)
[2017-11-18] MEDS: CELECOXIB 100 MG CAPSULE PO SCH (09:36)
[2017-11-18] MEDS: CALCIUM PO SCH (09:36)
[2017-11-18] MEDS: LISINOPRIL 20 MG TABLET PO SCH (09:37)
[2017-11-18] MEDS: rOPINIRole HCL 1 MG TABLET PO SCH ×4 (09:38→19:10)
[2017-11-18] MEDS: SENNOSIDES/DOCUSATE SODIUM 1 EACH TABLET PO SCH ×2 (09:41→19:11)
[2017-11-18] MEDS: POLYETHYLENE GLYCOL 3350 17 GM POWD.PACK PO SCH (11:57)
[2017-11-18] MEDS: TAMSULOSIN HCL 0.4 MG CAP.ER.24H PO SCH (17:22)
[2017-11-18] MEDS: HYDROcodone /APAP 5/325 1 EACH TABLET PO PRN (19:10)
[2017-11-18] MEDS: MIRTAZAPINE 15 MG TABLET PO SCH (19:10)
[2017-11-18] MEDS: RIVAROXABAN 10 MG TABLET PO SCH (19:11)
[2017-11-19] MEDS ORDERED: CALCIUM/VIT D 500MG/200IU TABLET ONE (05:11)
[2017-11-19] MEDS: HYDROcodone /APAP 5/325 1 EACH TABLET PO PRN ×2 (05:20→20:58)
[2017-11-19] MEDS: LEVOTHYROXINE SODIUM 75 MCG TABLET PO SCH (05:55)
[2017-11-19] MEDS: LITHIUM CARBONATE 300 MG TABLET PO SCH (08:31)
[2017-11-19] MEDS: VIT D PO SCH ×2 (08:31→08:37)
[2017-11-19] MEDS: CALCIUM PO SCH ×2 (08:31→08:37)
[2017-11-19] MEDS: CELECOXIB 100 MG CAPSULE PO SCH (08:31)
[2017-11-19] MEDS: rOPINIRole HCL 1 MG TABLET PO SCH ×4 (08:32→19:19)
[2017-11-19] MEDS: ERGOCALCIFEROL (VITAMIN D2) 50,000 UNIT CAPSULE PO SCH (08:32)
[2017-11-19] MEDS: LISINOPRIL 20 MG TABLET PO SCH (08:32)
[2017-11-19] MEDS: SENNOSIDES/DOCUSATE SODIUM 1 EACH TABLET PO SCH ×2 (08:32→19:18)
[2017-11-19] MEDS: POLYETHYLENE GLYCOL 3350 17 GM POWD.PACK PO SCH (11:49)
[2017-11-19] MEDS: TAMSULOSIN HCL 0.4 MG CAP.ER.24H PO SCH (17:56)
[2017-11-19] MEDS: MIRTAZAPINE 15 MG TABLET PO SCH (19:18)
[2017-11-19] MEDS: RIVAROXABAN 10 MG TABLET PO SCH (19:18)
[2017-11-20] MEDS ORDERED: CALCIUM/VIT D 500MG/200IU TABLET ONE (05:32)
[2017-11-20] MEDS: LEVOTHYROXINE SODIUM 75 MCG TABLET PO SCH (05:57)
[2017-11-20] MEDS: BUSPIRONE HCL 5 MG TABLET PO PRN ×2 (09:30→22:19)
[2017-11-20] MEDS: CALCIUM PO SCH (09:42)
[2017-11-20] MEDS: VIT D PO SCH (09:42)
[2017-11-20] MEDS: LITHIUM CARBONATE 300 MG TABLET PO SCH (09:43)
[2017-11-20] MEDS: rOPINIRole HCL 1 MG TABLET PO SCH ×4 (09:43→20:59)
[2017-11-20] MEDS: SENNOSIDES/DOCUSATE SODIUM 1 EACH TABLET PO SCH ×2 (09:43→20:35)
[2017-11-20] MEDS: LISINOPRIL 20 MG TABLET PO SCH (09:43)
[2017-11-20] MEDS: CELECOXIB 100 MG CAPSULE PO SCH ×2 (09:43→09:52)
[2017-11-20] MEDS: POLYETHYLENE GLYCOL 3350 17 GM POWD.PACK PO SCH ×2 (11:55→11:58)
[2017-11-20] MEDS: TAMSULOSIN HCL 0.4 MG CAP.ER.24H PO SCH (17:27)
[2017-11-20] MEDS: MIRTAZAPINE 15 MG TABLET PO SCH (20:35)
[2017-11-20] MEDS: RIVAROXABAN 10 MG TABLET PO SCH (20:35)
[2017-11-21] MEDS ORDERED: CALCIUM/VIT D 500MG/200IU TABLET ONE (05:41)
[2017-11-21] MEDS: LEVOTHYROXINE SODIUM 75 MCG TABLET PO SCH (05:48)
[2017-11-21] MEDS: CALCIUM PO SCH ×2 (09:40→09:45)
[2017-11-21] MEDS: VIT D PO SCH ×2 (09:40→09:45)
[2017-11-21] MEDS: CELECOXIB 100 MG CAPSULE PO SCH (09:41)
[2017-11-21] MEDS: rOPINIRole HCL 1 MG TABLET PO SCH ×4 (09:41→20:02)
[2017-11-21] MEDS: LISINOPRIL 20 MG TABLET PO SCH (09:41)
[2017-11-21] MEDS: LITHIUM CARBONATE 300 MG TABLET PO SCH (09:41)
[2017-11-21] MEDS: SENNOSIDES/DOCUSATE SODIUM 1 EACH TABLET PO SCH ×2 (09:42→20:01)
[2017-11-21] MEDS: POLYETHYLENE GLYCOL 3350 17 GM POWD.PACK PO SCH (10:35)
[2017-11-21] MEDS: TERAZOSIN HCL 1 MG CAPSULE PO SCH ×2 (13:20→20:01)
[2017-11-21] MEDS: TAMSULOSIN HCL 0.4 MG CAP.ER.24H PO SCH (17:43)
[2017-11-21] MEDS: RIVAROXABAN 10 MG TABLET PO SCH (20:01)
[2017-11-21] MEDS: HYDROcodone /APAP 5/325 1 EACH TABLET PO PRN (20:01)
[2017-11-21] MEDS: BUSPIRONE HCL 5 MG TABLET PO PRN (20:01)
[2017-11-21] MEDS: MIRTAZAPINE 15 MG TABLET PO SCH (20:02)
[2017-11-22] MEDS ORDERED: LEVOTHYROXINE SODIUM 25 MCG TABLET ONE (05:35)
[2017-11-22] MEDS: LEVOTHYROXINE SODIUM 75 MCG TABLET PO SCH (05:40)
[2017-11-22] MEDS ORDERED: CALCIUM/VIT D 500MG/200IU TABLET ONE (06:05)
[2017-11-22] MEDS: rOPINIRole HCL 1 MG TABLET PO SCH ×2 (08:29→13:11)
[2017-11-22] MEDS: CALCIUM PO SCH ×2 (08:29→08:33)
[2017-11-22] MEDS: VIT D PO SCH ×2 (08:29→08:33)
[2017-11-22] MEDS: BUSPIRONE HCL 5 MG TABLET PO PRN (08:29)
[2017-11-22] MEDS: CELECOXIB 100 MG CAPSULE PO SCH (08:29)
[2017-11-22] MEDS: SENNOSIDES/DOCUSATE SODIUM 1 EACH TABLET PO SCH (08:30)
[2017-11-22] MEDS: LITHIUM CARBONATE 300 MG TABLET PO SCH (08:30)
[2017-11-22] MEDS: LISINOPRIL 20 MG TABLET PO SCH (08:30)
--- NOTE | 2017-11-22 10:23 | Discharge Summary ---
Discharge Summary - Discharge Sumary History of Present Illness: Patient was a resident on [facility] when she fell on 10-23-17 and suffered a R femoral neck fx. She has this repaired at [facility] on 10-24-17 with ORIF. It was noted when montoya placed prior to patient transfer to [facility] she had 2000 cc of urine retained in bladder. She continued with urinary retention while there and failed numerous voiding trials. She has a chronic history of issues with urination that looking back was likely related to retention. Montoya is still in place. She had some new hyponatremia just before her fall that was thought to be due to her new effexor and had been held. This continued at [facility] so HCTZ stopped also. Improved. She developed an ileus post op that required NG tube as well as PPN. She was given numerous enemas and laxatives. She began stooling and taking better po intake. Stool still tends to be liquidy. Pain is well controlled - not requiring hardly any narcotics. Condition at Discharge: Stable Home Medications: Ambulatory Orders Medication Instructions Recorded Levothyroxine Sodium [Unithroid] 75 mcg PO 0700 11/15/16 Calcium Carbonate/Vitamin D3 1 tab PO DAILY 11/05/17 [Calcium 500 + Vit D 200 Tablet] Lisinopril 20 mg PO DAILY 11/05/17 [place] Carbonate 75 mg PO DAILY 11/05/17 Polyethylene Glycol 3350 [Miralax] 17 gm PO 1100 PRN 11/05/17 Sennosides/Docusate Sodium 1 tab PO BID PRN 11/05/17 [Docusate Sodium-Senna Tablet] Buspirone HCl [Buspar] 5 mg PO BID PRN #60 tablet 11/21/17 Ergocalciferol (Vitamin D2) 1 cap PO Q7DAYS #4 capsule 11/21/17 [Vitamin D-2] Mirtazapine [Remeron] 45 mg PO HS #30 tablet 11/21/17 Tamsulosin HCl [Flomax] 1 tab PO DAILY #30 cap.er.24h 11/21/17 Terazosin HCl 1 mg PO HS #30 capsule 11/21/17 Consultations this Visit: None Procedures this Visit: None Allergies/Adverse Reactions: Allergies Allergy/AdvReac Type Severity Reaction Status Date / Time No Known Drug Allergies Allergy Verified 11/15/16 03:44 Patient Problems: Current Active Problems Problem Status Onset Closed right hip fracture Acute Hyponatremia Acute Urinary retention Acute Weakness Acute Discharge Summary: Patient was admitted for PT/OT due to her hip fracture. She did ok with therapies and was transitioned back to [facility]. She had a catheter due to urinary retention. She had been placed on flomax by urology. Due to the trouble of getting her to [place], we pulled catheter. 24 hours later we did an post void catheterization (no u/s available) and got 250 cc of urine after a 125 cc void. Catheter was left in. Terazosin was started. Patient will f/u in the urology clinic. She will also f/u with ortho in a few weeks. Hospital Course: Discharge Dx: L hip fx. Urinary retention. Depression/ anxiety. Disposition - back to [facility]
[2017-11-22 12:49] VITALS: BP 135/53
[2017-11-22] MEDS: POLYETHYLENE GLYCOL 3350 17 GM POWD.PACK PO SCH (12:51)
== END 2017-11-22 13:55 | DRG 560 ==
LOC: SOUTH 12:20
PROVIDERS: ADMIT Family Medicine; ATTEND Family Medicine
DX: S72.001D Fracture of unspecified part of neck of right femur, subsequent encounter for closed fracture with routine healing (principal); E87.1 Hypo-osmolality and hyponatremia; K56.7 Ileus, unspecified; R53.1 Weakness; R33.9 Retention of urine, unspecified; I10 Essential (primary) hypertension; F33.42 Major depressive disorder, recurrent, in full remission; W19.XXXD Unspecified fall, subsequent encounter
CPT/HCPCS: 80048; 97110; 97112; 97116; 97161; 97530; 97535; A9270

== ENCOUNTER 2017-11-25 12:29 | Outpatient (CLI) | payer MEDICARE, OTHER | END 2017-11-25 12:30 | LOC: LAB 12:29 | PROVIDERS: ATTEND Family Medicine | DX: R41.0 Disorientation, unspecified (principal) | CPT/HCPCS: 87086; 87186 ==

== ENCOUNTER 2017-12-02 17:26 | Outpatient (CLI) | payer MEDICARE, OTHER ==
[2017-12-02 18:26] LABS: BASOPHILS % 0.4 (0.0-1.5); EOSINOPHILS % 0.4 % (0.0-6.8); MEAN CORPUSCULAR HEMOGLOBIN 29.1 pg (28.0-34.0); MEAN CORPUSCULAR VOLUME 90.2 fl (80.0-100.0); MONOCYTES % 4.8 % (0.0-11.0); NEUTROPHILS # 3.2 # k/uL (1.4-7.7)
[2017-12-02 18:39] LABS: eGFR (African) > 60; eGFR (Non-African) > 60
== END 2017-12-02 17:27 ==
LOC: LAB 17:26
PROVIDERS: ATTEND Family Medicine
DX: S72.001A Fracture of unspecified part of neck of right femur, initial encounter for closed fracture (principal); X58.XXXA Exposure to other specified factors, initial encounter
CPT/HCPCS: 36415; 80048; 85025

== ENCOUNTER 2017-12-03 05:07 | Outpatient (CLI) | payer MEDICARE, OTHER ==
--- NOTE | 2017-12-03 08:49 | Diagnostic Imaging Report ---
MAREK SANCHEZ/ALLY [facility] [id number] [facility] [address] [place] [address]. [id number] Report Submission Date: Dec 03, 2017 7:48:29 AM SERVER DEVELOPER Patient Study Name: LEYLA MARIO Date: Dec 03, 2017 7:18:52 AM SERVER DEVELOPER Modality Type: DX Gender: F Description: PELVIS : [birth year] Institution: [facility] Physician: MAREK SANCHEZ/ALLY Examination: Plain film pelvis/right hip History: RT HIP SURGERY X 3 WEEKS AGO, RT HIP PAIN (Hx) Comparison exams: 23 October 2017 Findings: 3 views of the pelvis and hip demonstrates right hip replacement. No evidence for loosening or displacement. Few adjacent dystrophic calcifications. Remainder of the pelvis demonstrates osteopenia and articular degenerative changes. Catheter within the bladder. Impression: Right hip replacement. No plain film evidence for loosening/ displacement. Electronically signed on Dec 03, 2017 7:48:29 AM SERVER DEVELOPER by: Dmitri URIBE
== END 2017-12-03 05:30 ==
LOC: RAD 05:07
PROVIDERS: ATTEND Family Medicine
DX: S72.009A Fracture of unspecified part of neck of unspecified femur, initial encounter for closed fracture (principal); X58.XXXA Exposure to other specified factors, initial encounter
CPT/HCPCS: 72170

== ENCOUNTER 2017-12-16 11:35 | Outpatient (CLI) | payer MEDICARE, OTHER | END 2017-12-16 11:36 | LOC: LAB 11:35 | PROVIDERS: ATTEND Family Medicine | DX: E55.9 Vitamin D deficiency, unspecified (principal) | CPT/HCPCS: 36415; 82306 ==

== ENCOUNTER 2017-12-25 10:43 | Outpatient (CLI) | payer MEDICARE, OTHER | END 2017-12-25 10:44 | LOC: POD 10:43 | PROVIDERS: ATTEND Podiatrist Public Medicine | DX: B35.1 Tinea unguium (principal); L84 Corns and callosities; L60.0 Ingrowing nail; M79.674 Pain in right toe(s); M79.675 Pain in left toe(s) | CPT/HCPCS: 11721; G0463 ==

== ENCOUNTER 2018-01-06 13:38 | Outpatient (CLI) | payer MEDICARE, OTHER ==
[2018-01-06 14:19] LABS: eGFR (Non-African) > 60
== END 2018-01-06 13:40 ==
LOC: LAB 13:38
PROVIDERS: ATTEND Family Medicine
DX: R41.82 Altered mental status, unspecified (principal)
CPT/HCPCS: 36415; 80048; 87086

== ENCOUNTER 2018-01-09 11:54 | Outpatient (CLI) | payer MEDICARE, OTHER ==
[2018-01-09 13:05] LABS: BASOPHILS % 0.6 (0.0-1.5); EOSINOPHILS % 1.3 % (0.0-6.8); MEAN CORPUSCULAR HEMOGLOBIN 28.6 pg (28.0-34.0); MEAN CORPUSCULAR VOLUME 89.5 fl (80.0-100.0); MONOCYTES % 4.8 % (0.0-11.0); NEUTROPHILS # 3.3 # k/uL (1.4-7.7)
== END 2018-01-09 11:55 ==
LOC: LAB 11:54
PROVIDERS: ATTEND Family Medicine
DX: M10.9 Gout, unspecified (principal)
CPT/HCPCS: 36415; 84550; 85025

== ENCOUNTER 2018-01-20 08:08 | Outpatient (CLI) | payer MEDICARE, OTHER ==
[2018-01-20 09:31] LABS: BASOPHILS % 0.7 (0.0-1.5); EOSINOPHILS % 1.9 % (0.0-6.8); MEAN CORPUSCULAR HEMOGLOBIN 28.1 pg (28.0-34.0); MEAN CORPUSCULAR VOLUME 88.7 fl (80.0-100.0); MONOCYTES % 7.1 % (0.0-11.0); NEUTROPHILS # 3.4 # k/uL (1.4-7.7)
== END 2018-01-20 08:10 ==
LOC: LAB 08:08
PROVIDERS: ATTEND Family Medicine
DX: M79.604 Pain in right leg (principal); R60.9 Edema, unspecified
CPT/HCPCS: 36415; 85025; 85379

== ENCOUNTER 2018-02-26 09:26 | Outpatient (CLI) | payer MEDICARE, OTHER | END 2018-02-26 09:27 | LOC: LAB 09:26 | PROVIDERS: ATTEND Family Medicine | DX: E03.9 Hypothyroidism, unspecified (principal) | CPT/HCPCS: 36415; 84443 ==

== ENCOUNTER 2018-04-09 09:06 | Outpatient (CLI) | payer MEDICARE, OTHER | END 2018-04-09 09:08 | LOC: POD 09:06 | PROVIDERS: ATTEND Podiatrist Public Medicine | DX: B35.1 Tinea unguium (principal); L84 Corns and callosities; L60.0 Ingrowing nail; M79.674 Pain in right toe(s); M79.675 Pain in left toe(s) | CPT/HCPCS: 11721; G0463 ==